=== PATIENT | female | born 1975 | race Caucasian/White ===

== ENCOUNTER 2018-08-29 15:07 | Inpatient (IN) ==
[2018-08-29] MEDS ORDERED: Ondansetron ODT 4 MG TAB.RAPDIS SL ONE (15:30)
[2018-08-29] MEDS ORDERED: Ketorolac 15 MG/ML VIAL IM ONE (15:30)
--- NOTE | 2018-08-29 15:59 | Emergency Department Note ---
Disposition Clinical Impression: Suicidal ideation, Left flank pain UTI (urinary tract infection) Qualifiers: Urinary tract infection type: acute cystitis Hematuria presence: without hematuria Qualified Code(s): N30.00 - Acute cystitis without hematuria Disposition: Still a Patient Referrals: NONE,PCP [Primary Care Provider] - Forms: ED Satisfaction Letter General Adult HPI - General Chief complaint: ED Psychiatric Symptoms Stated complaint: SI,Possible kidney stone Time Seen by Provider: 08/29/18 15:12 Source: patient, family Limitations: no limitations - History of Present Illness Pain Scale: 5 - Related Data Home Medications Medication Instructions Recorded Confirmed lamoTRIgine [Lamictal] 75 mg PO HS 05/07/15 05/07/15 Previous Rx's Medication Instructions Recorded Meloxicam [Mobic] 15 mg PO BID #15 tablet 05/22/15 metroNIDAZOLE [Flagyl] 500 mg PO BID #14 tablet 10/20/15 Melatonin 3 mg PO HS PRN #30 tablet 10/30/15 hydrOXYzine pamoate [HydrOXYzine 25 mg PO TID PRN #90 capsule 10/30/15 Pamoate] Allergies Allergy/AdvReac Type Severity Reaction Status Date / Time adhesive Allergy Rash Verified 07/01/15 02:48 aspirin [ASA] Allergy See Verified 05/22/15 10:15 Comments Past Medical History - Past Medical History Medical history: Reports: kidney stones, other Surgical history: Reports: hysterectomy Psychiatric history: Reports: prior suicide attempt, previous psychiatric hospitalization 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 - Social History Smoking Status: Current every day smoker Smokeless Tobacco Status: No Alcohol use: Reports: occasionally, recent Drug use: Reports: none, other Physical Exam - General Limitations: no limitations General appearance: alert, in no apparent distress Course Vital Signs Temperature 98.1 F 08/29/18 15:09 Pulse Rate 97 08/29/18 15:09 Respiratory Rate 16 08/29/18 15:09 Blood Pressure 171/111 08/29/18 15:09 O2 Sat by Pulse Oximetry 97 08/29/18 15:09 Temperature 98.1 F 08/29/18 15:09 Pulse Rate 97 08/29/18 15:09 Respiratory Rate 16 08/29/18 15:09 Blood Pressure 171/111 08/29/18 15:09 O2 Sat by Pulse Oximetry 97 08/29/18 15:09 Oxygen Delivery Oxygen Delivery Room Air Medical Decision Making - Medical Records Medical records reviewed: Yes I reviewed the patient's medical records. - Lab Data Lab results reviewed: Yes I reviewed the patient's lab results. Result diagrams: 08/29/18 16:00 08/29/18 16:00 Lab Results 08/29/18 08/29/18 08/29/18 Range/Units 15:25 15:47 15:47 WBC (4.3-11.1) K/mcL RBC (3.82-4.97) M/mcL Hgb (11.5-15.4) g/dL Hct (35.3-44.9) % MCV (83.0-100.0) fL MCH (28.0-33.3) pg MCHC (31.6-35.5) g/dL RDW (11.5-14.5) % Plt Count (140-400) K/mcL MPV (9.4-12.4) fL Immature Gran % (0-4) % Seg Neutrophils % % Lymphocytes % % Monocytes % % Eosinophils % % Basophils % % Neutrophils # (1.6-8.9) K/mcL Lymphocytes # (0.6-4.6) K/mcL Monocytes # (0.0-1.3) K/mcL Eosinophils # (0.0-0.6) K/mcL Basophils # (0.0-0.2) K/mcL Sodium (136-145) mEq/L Potassium (3.5-5.1) mEq/L Chloride (98-107) mEq/L Carbon Dioxide (23-29) mEq/L BUN (6-20) mg/dL Creatinine (0.60-1.20) mg/dL Est GFR ( Amer) (> 60) Est GFR (Non-Af Amer) (> 60) BUN/Creatinine Ratio (6-26) Glucose (70-105) mg/dL Calculated Osmolality (280-300) Calcium (8.6-10.3) mg/dL Urine Color Dark Yellow (Yellow) Urine Clarity Cloudy A (Clear) Urine pH 6.0 (5.0-8.0) pH Units Ur Specific [place] 1.025 (1.010-1.025) Urine Protein Trace (Neg-Trace) mg/dL Urine Glucose (UA) Normal (Normal) mg/dL Urine Ketones Trace H (Negative) mg/dL Urine Blood Moderate H (Negative) Urine Nitrite Positive A (Negative) Urine Bilirubin Negative (Negative) Urine Urobilinogen Normal (Normal) mg/dL Ur Leukocyte Esterase Small H (Negative) Urine Microscopic RBC 5-15 H (0-3) per hpf Urine Microscopic WBC 5-15 H (0-3) per hpf Ur Squamous Epith Cells Many H (None-Few) per lpf Urine Bacteria Many H (None-Few) per hpf Hyaline Casts None Seen (None-Few) per lpf Urine Test Negative (Negative) Salicylates (15.0-30.0) mg/dL Urine Opiates Screen Positive H (Ekgtvj=546) ng/mL Acetaminophen (10-20) mcg/mL Ur Barbiturates Screen Negative (Raynnr=033) ng/mL Ur Phencyclidine Scrn Negative (Cutoff=25) ng/mL Ur Amphetamines Screen Negative (Bvklov=0571) ng/mL U Benzodiazepines Scrn Negative (Ymgidy=072) ng/mL Urine Cocaine Screen Negative (Cutoff= 300) ng/mL U Marijuana (THC) Screen Positive H (Cutoff = 50) ng/mL Ur Drug Screen Interp See Below Ethyl Alcohol (Less than 10) mg/dL 08/29/18 08/29/18 Range/Units 16:00 16:00 WBC 9.8 (4.3-11.1) K/mcL RBC 4.73 (3.82-4.97) M/mcL Hgb 16.0 H (11.5-15.4) g/dL Hct 47.5 H (35.3-44.9) % MCV 100.4 H (83.0-100.0) fL MCH 33.8 H (28.0-33.3) pg MCHC 33.7 (31.6-35.5) g/dL RDW 13.5 (11.5-14.5) % Plt Count 279 (140-400) K/mcL MPV 10.4 (9.4-12.4) fL Immature Gran % 0.3 (0-4) % Seg Neutrophils % 72.4 % Lymphocytes % 20.7 % Monocytes % 5.8 % Eosinophils % 0.2 % Basophils % 0.6 % Neutrophils # 7.1 (1.6-8.9) K/mcL Lymphocytes # 2.0 (0.6-4.6) K/mcL Monocytes # 0.6 (0.0-1.3) K/mcL Eosinophils # 0.0 (0.0-0.6) K/mcL Basophils # 0.1 (0.0-0.2) K/mcL Sodium 140 (136-145) mEq/L Potassium 3.7 (3.5-5.1) mEq/L Chloride 108 H (98-107) mEq/L Carbon Dioxide 23 (23-29) mEq/L BUN 11 (6-20) mg/dL Creatinine 0.67 (0.60-1.20) mg/dL Est GFR ( Amer) > 60 (> 60) Est GFR (Non-Af Amer) > 60 (> 60) BUN/Creatinine Ratio 16 (6-26) Glucose 129 H (70-105) mg/dL Calculated Osmolality 291 (280-300) Calcium 9.2 (8.6-10.3) mg/dL Urine Color (Yellow) Urine Clarity (Clear) Urine pH (5.0-8.0) pH Units Ur Specific [place] (1.010-1.025) Urine Protein (Neg-Trace) mg/dL Urine Glucose (UA) (Normal) mg/dL Urine Ketones (Negative) mg/dL Urine Blood (Negative) Urine Nitrite (Negative) Urine Bilirubin (Negative) Urine Urobilinogen (Normal) mg/dL Ur Leukocyte Esterase (Negative) Urine Microscopic RBC (0-3) per hpf Urine Microscopic WBC (0-3) per hpf Ur Squamous Epith Cells (None-Few) per lpf Urine Bacteria (None-Few) per hpf Hyaline Casts (None-Few) per lpf Urine Test (Negative) Salicylates < 2.5 L (15.0-30.0) mg/dL Urine Opiates Screen (Wehgwz=744) ng/mL Acetaminophen < 10 L (10-20) mcg/mL Ur Barbiturates Screen (Qnjvmn=255) ng/mL Ur Phencyclidine Scrn (Cutoff=25) ng/mL Ur Amphetamines Screen (Gjjtxs=7956) ng/mL U Benzodiazepines Scrn (Nhegmy=389) ng/mL Urine Cocaine Screen (Cutoff= 300) ng/mL U Marijuana (THC) Screen (Cutoff = 50) ng/mL Ur Drug Screen Interp Ethyl Alcohol < 10 (Less than 10) mg/dL - Radiology Data Radiology results reviewed: Yes I reviewed the patient's radiology results. Attestation Statement - Attestation Attestation: I examined this patient and my medical decision-making was reviewed with the Resident Physician. I agree with the documented findings, disposition and treatment plan as described except to the extent set forth below. 42-year-old female presented to the emergency room for a psychiatric evaluation. Patient has a history of bipolar disorder. Patient has not been taking her medications. She admits to suicidal thoughts. Previous suicidal attempts in the past. Patient will be worked up with medical clearance. She denies homicidal thoughts. She does not have a current plan but states that she will does want to kill herself. She is also complaining of left flank pain as well as right-sided lower abdominal pain. She has a history of kidney stones. She thought she might be having another kidney stone as well. We will check labs, urinalysis, CT abdomen and pelvis.
--- NOTE | 2018-08-29 16:01 | Emergency Department Note ---
Disposition Clinical Impression: Suicidal ideation, Left flank pain, UTI (urinary tract infection) Disposition: Still a Patient Referrals: NONE,PCP [Primary Care Provider] - Forms: ED Satisfaction Letter Psych HPI - General Chief Complaint: ED Psychiatric Symptoms Stated Complaint: SI,Possible kidney stone Time Seen by Provider: 08/29/18 15:12 Source: patient, family Nursing Notes Reviewed: Yes Vital Signs Reviewed: Yes - History of Present Illness HPI Narrative: 42-year-old female presents from home with friends bedside. She is in agreement to talk about all of her current and previous medical history in front of him. She seeks evaluation for left flank pain which she believes is a kidney stone as well as suicidal ideation. Left flank pain: For the past 4 days, patient has had intermittent waxing and waning sharp stabbing left-sided flank pain with associated urinary burning, frequency, dysuria. Identical to her prior kidney stones which she has had previously. She does have associated nausea. No vomiting. No fevers or chills. No trauma. No gross hematuria. She is agreeable to CT abdomen pelvis without contrast in supportive management at this time. Suicidal ideation: Patient is a history of bipolar disorder. Since February, she has been noncompliant with her medications and drinking a bottle of wild [place] liquor each day. Last drink was last night. She currently does not have any nausea or jittery feelings. She is getting to the point where she does not want to leave her room, she does not want to live. She states, "I have been down this path before and I know where he is having. I do not want to go there and one help." She denies illicit substances with the exception of marijuana which she may have smoked while intoxicated with alcohol. She is not sure. She notes that, in February a close friend unexpectedly . Similar circumstances happened in March. She does have a history of suicidal attempt with intentional medication overdose many years ago. She does not currently have a plan. She has not intentionally ingested anything to harm herself recently. Current every day tobacco smoker. ROS: Positive: As above Negative: Fever, chills, vomiting, diarrhea, constipation, vaginal discharge, chest pains, palpitations - Related Data Home Medications Medication Instructions Recorded Confirmed lamoTRIgine [Lamictal] 75 mg PO HS 05/07/15 05/07/15 Previous Rx's Medication Instructions Recorded Meloxicam [Mobic] 15 mg PO BID #15 tablet 05/22/15 metroNIDAZOLE [Flagyl] 500 mg PO BID #14 tablet 10/20/15 Melatonin 3 mg PO HS PRN #30 tablet 10/30/15 hydrOXYzine pamoate [HydrOXYzine 25 mg PO TID PRN #90 capsule 10/30/15 Pamoate] Allergies Allergy/AdvReac Type Severity Reaction Status Date / Time adhesive Allergy Rash Verified 07/01/15 02:48 aspirin [ASA] Allergy See Verified 05/22/15 10:15 Comments All systems ED: reviewed and negative except as stated. 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 Head: atraumatic, normocephalic Eye: normal appearance, PERRL, EOMI, no scleral icterus, no conjunctival injection ENT: mucous membranes moist, normal external ear exam Neck: normal inspection, trachea midline, full ROM Chest: normal inspection, symmetric chest rise Respiratory: Good respiratory effort. Bilateral breath sounds are clear without wheezing, crackles, or rhonchi. Cardiovascular: Regular rate and rhythm. No clicks, rubs, gallops, or murmors. Normal heart sounds. Abdomen: Bowel sounds present normoactive. Abdomen is soft, nondistended, and nontender. No guarding or rebound. No CVA tenderness. Musculoskeletal: Spontaneously moving all extremities. Skin: warm, dry, intact. Neuro: GCS 15. Alert and oriented x4. Psych: Patient's affect is appropriate for situation. - General Limitations: no limitations General appearance: alert, in no apparent distress Course Course Narrative: Discussed the patient anticipated course of treatment both for her left leg pain as well as for our mutual concerns of her mental health. She is in agreement with this plan of care. Will provide Zofran and Toradol for her nausea and flank pain. CT of the pelvis without contrast. Will attempt medical clearance for mental health evaluation which will include urinalysis. CT abdomen pelvis shows no acute abnormalities. Specifically, no calculus in the kidney or ureter. Blood work shows UTI otherwise is unremarkable. Patient is stable with no concerns of sepsis. Will treat with oral nitrofurantoin. First dose provided in the emergency department. At this time, patient is medically cleared however we need to have oral antibiotic continued for her UTI. Abdomen/Pelvis CT 08/29/18 15:30 IMPRESSION: Nonobstructive left nephrolithiasis. No right nephrolithiasis, stone seen along the ureters or within the urinary bladder. Cholelithiasis without evidence of cholecystitis. Diverticulosis without evidence of diverticulitis. Normal appendix. D/ / Qasim Murguia / Qasim Murguia Interpreting Provider: Qasim Murguia Vital Signs Temperature 98.1 F 08/29/18 15:09 Pulse Rate 97 08/29/18 15:09 Respiratory Rate 16 08/29/18 15:09 Blood Pressure 171/111 08/29/18 15:09 O2 Sat by Pulse Oximetry 97 08/29/18 15:09 Temperature 98.1 F 08/29/18 15:09 Pulse Rate 97 08/29/18 15:09 Respiratory Rate 16 08/29/18 15:09 Blood Pressure 171/111 08/29/18 15:09 O2 Sat by Pulse Oximetry 97 08/29/18 15:09 Oxygen Delivery Oxygen Delivery Room Air Psych - Lab Data Result diagrams: 08/29/18 16:00 08/29/18 16:00 Lab Results 08/29/18 08/29/18 08/29/18 Range/Units 15:25 15:47 15:47 WBC (4.3-11.1) K/mcL RBC (3.82-4.97) M/mcL Hgb (11.5-15.4) g/dL Hct (35.3-44.9) % MCV (83.0-100.0) fL MCH (28.0-33.3) pg MCHC (31.6-35.5) g/dL RDW (11.5-14.5) % Plt Count (140-400) K/mcL MPV (9.4-12.4) fL Immature Gran % (0-4) % Seg Neutrophils % % Lymphocytes % % Monocytes % % Eosinophils % % Basophils % % Neutrophils # (1.6-8.9) K/mcL Lymphocytes # (0.6-4.6) K/mcL Monocytes # (0.0-1.3) K/mcL Eosinophils # (0.0-0.6) K/mcL Basophils # (0.0-0.2) K/mcL Sodium (136-145) mEq/L Potassium (3.5-5.1) mEq/L Chloride (98-107) mEq/L Carbon Dioxide (23-29) mEq/L BUN (6-20) mg/dL Creatinine (0.60-1.20) mg/dL Est GFR ( Amer) (> 60) Est GFR (Non-Af Amer) (> 60) BUN/Creatinine Ratio (6-26) Glucose (70-105) mg/dL Calculated Osmolality (280-300) Calcium (8.6-10.3) mg/dL Urine Color Dark Yellow (Yellow) Urine Clarity Cloudy A (Clear) Urine pH 6.0 (5.0-8.0) pH Units Ur Specific [place] 1.025 (1.010-1.025) Urine Protein Trace (Neg-Trace) mg/dL Urine Glucose (UA) Normal (Normal) mg/dL Urine Ketones Trace H (Negative) mg/dL Urine Blood Moderate H (Negative) Urine Nitrite Positive A (Negative) Urine Bilirubin Negative (Negative) Urine Urobilinogen Normal (Normal) mg/dL Ur Leukocyte Esterase Small H (Negative) Urine Microscopic RBC 5-15 H (0-3) per hpf Urine Microscopic WBC 5-15 H (0-3) per hpf Ur Squamous Epith Cells Many H (None-Few) per lpf Urine Bacteria Many H (None-Few) per hpf Hyaline Casts None Seen (None-Few) per lpf Urine Test Negative (Negative) Salicylates (15.0-30.0) mg/dL Urine Opiates Screen Positive H (Vihlqz=083) ng/mL Acetaminophen (10-20) mcg/mL Ur Barbiturates Screen Negative (Vssiwk=437) ng/mL Ur Phencyclidine Scrn Negative (Cutoff=25) ng/mL Ur Amphetamines Screen Negative (Vjkpnw=8561) ng/mL U Benzodiazepines Scrn Negative (Sjeyfe=168) ng/mL Urine Cocaine Screen Negative (Cutoff= 300) ng/mL U Marijuana (THC) Screen Positive H (Cutoff = 50) ng/mL Ur Drug Screen Interp See Below Ethyl Alcohol (Less than 10) mg/dL 08/29/18 08/29/18 Range/Units 16:00 16:00 WBC 9.8 (4.3-11.1) K/mcL RBC 4.73 (3.82-4.97) M/mcL Hgb 16.0 H (11.5-15.4) g/dL Hct 47.5 H (35.3-44.9) % MCV 100.4 H (83.0-100.0) fL MCH 33.8 H (28.0-33.3) pg MCHC 33.7 (31.6-35.5) g/dL RDW 13.5 (11.5-14.5) % Plt Count 279 (140-400) K/mcL MPV 10.4 (9.4-12.4) fL Immature Gran % 0.3 (0-4) % Seg Neutrophils % 72.4 % Lymphocytes % 20.7 % Monocytes % 5.8 % Eosinophils % 0.2 % Basophils % 0.6 % Neutrophils # 7.1 (1.6-8.9) K/mcL Lymphocytes # 2.0 (0.6-4.6) K/mcL Monocytes # 0.6 (0.0-1.3) K/mcL Eosinophils # 0.0 (0.0-0.6) K/mcL Basophils # 0.1 (0.0-0.2) K/mcL Sodium 140 (136-145) mEq/L Potassium 3.7 (3.5-5.1) mEq/L Chloride 108 H (98-107) mEq/L Carbon Dioxide 23 (23-29) mEq/L BUN 11 (6-20) mg/dL Creatinine 0.67 (0.60-1.20) mg/dL Est GFR ( Amer) > 60 (> 60) Est GFR (Non-Af Amer) > 60 (> 60) BUN/Creatinine Ratio 16 (6-26) Glucose 129 H (70-105) mg/dL Calculated Osmolality 291 (280-300) Calcium 9.2 (8.6-10.3) mg/dL Urine Color (Yellow) Urine Clarity (Clear) Urine pH (5.0-8.0) pH Units Ur Specific [place] (1.010-1.025) Urine Protein (Neg-Trace) mg/dL Urine Glucose (UA) (Normal) mg/dL Urine Ketones (Negative) mg/dL Urine Blood (Negative) Urine Nitrite (Negative) Urine Bilirubin (Negative) Urine Urobilinogen (Normal) mg/dL Ur Leukocyte Esterase (Negative) Urine Microscopic RBC (0-3) per hpf Urine Microscopic WBC (0-3) per hpf Ur Squamous Epith Cells (None-Few) per lpf Urine Bacteria (None-Few) per hpf Hyaline Casts (None-Few) per lpf Urine Test (Negative) Salicylates < 2.5 L (15.0-30.0) mg/dL Urine Opiates Screen (Zvwxua=164) ng/mL Acetaminophen < 10 L (10-20) mcg/mL Ur Barbiturates Screen (Bqpaao=416) ng/mL Ur Phencyclidine Scrn (Cutoff=25) ng/mL Ur Amphetamines Screen (Ozlxbv=2208) ng/mL U Benzodiazepines Scrn (Kvswmr=442) ng/mL Urine Cocaine Screen (Cutoff= 300) ng/mL U Marijuana (THC) Screen (Cutoff = 50) ng/mL Ur Drug Screen Interp Ethyl Alcohol < 10 (Less than 10) mg/dL Psychiatric Medical Clearance - Medical Clearance Checklist Medical History: No Social History Section defined Current Vitals: Last Vital Signs Temp 98.1 F 08/29/18 15:09 Pulse 97 08/29/18 15:09 Resp 16 08/29/18 15:09 BP 171/111 08/29/18 15:09 Pulse Ox 97 08/29/18 15:09 Psychiatric Lab Panel: Drug Levels and Toxicity 08/29/18 08/29/18 15:47 16:00 Urine Opiates Screen Positive H Acetaminophen < 10 L Ur Barbiturates Screen Negative Ur Phencyclidine Scrn Negative Ur Amphetamines Screen Negative U Benzodiazepines Scrn Negative Urine Cocaine Screen Negative U Marijuana (THC) Screen Positive H Ethyl Alcohol < 10 Abnormal Labs: Abnormal lab results Hgb 16.0 g/dL (11.5-15.4) H 08/29/18 16:00 Hct 47.5 % (35.3-44.9) H 08/29/18 16:00 MCV 100.4 fL (83.0-100.0) H 08/29/18 16:00 MCH 33.8 pg (28.0-33.3) H 08/29/18 16:00 Chloride 108 mEq/L (98-107) H 08/29/18 16:00 Glucose 129 mg/dL (70-105) H 08/29/18 16:00 Urine Clarity Cloudy (Clear) A 08/29/18 15:25 Urine Ketones Trace mg/dL (Negative) H 08/29/18 15:25 Urine Blood Moderate (Negative) H 08/29/18 15:25 Urine Nitrite Positive (Negative) A 08/29/18 15:25 Ur Leukocyte Esterase Small (Negative) H 08/29/18 15:25 Urine Microscopic RBC 5-15 per hpf (0-3) H 08/29/18 15:25 Urine Microscopic WBC 5-15 per hpf (0-3) H 08/29/18 15:25 Ur Squamous Epith Cells Many per lpf (None-Few) H 08/29/18 15:25 Urine Bacteria Many per hpf (None-Few) H 08/29/18 15:25 Salicylates < 2.5 mg/dL (15.0-30.0) L 08/29/18 16:00 Urine Opiates Screen Positive ng/mL (Faktlm=749) H 08/29/18 15:47 Acetaminophen < 10 mcg/mL (10-20) L 08/29/18 16:00 U Marijuana (THC) Screen Positive ng/mL (Cutoff = 50) H 08/29/18 15:47 Statement of Medical Clearance: I have evaluated the patient, reviewed diagnostic information, and certify that the patient's medical condition is sufficiently stable that transfer to the psychiatric unit does not pose a significant risk of deterioration.
[2018-08-29 16:16] LABS: Basophils # 0.1 K/mcL (0.0-0.2); Basophils % 0.6 %; Eosinophils % 0.2 %; Hematocrit 47.5 % (35.3-44.9); Immature Granulocytes % 0.3 % (0-4); Lymphocytes % 20.7 %; Mean Corpuscular HGB Conc 33.7 g/dL (31.6-35.5); Mean Corpuscular Hemoglobin 33.8 pg (28.0-33.3); Mean Corpuscular Volume 100.4 fL (83.0-100.0); Mean Platelet Volume 10.4 fL (9.4-12.4); Monocytes # 0.6 K/mcL (0.0-1.3); Monocytes % 5.8 %; Neutrophils # 7.1 K/mcL (1.6-8.9); Platelet Count 279 K/mcL (140-400); Red Blood Count 4.73 M/mcL (3.82-4.97); Red Cell Distribution Width 13.5 % (11.5-14.5); Segmented Neutrophils % 72.4 %
[2018-08-29 16:30] LABS: Bilirubin,Urine Negative (Negative); Blood,Urine Moderate (Negative); Clarity,Urine Cloudy (Clear); Color,Urine Dark Yellow (Yellow); Glucose,Urine (UA) Normal (Normal); Ketones,Urine Trace mg/dL (Negative); Leukocyte Esterase,Urine Small (Negative); Nitrite,Urine Positive (Negative); Protein,Urine Trace mg/dL (Neg-Trace); Specific Gravity,Urine 1.025 (1.010-1.025); Urobilinogen,Urine Normal (Normal)
[2018-08-29 16:34] LABS: Bacteria,Urine Many per hpf (None-Few); Hyaline Casts,Urine None Seen per lpf (None-Few); Squamous Epithelial Cell,Urine Many per lpf (None-Few)
[2018-08-29 16:54] LABS: Acetaminophen < 10 mcg/mL (10-20); BUN/Creatinine Ratio 16 (6-26); Blood Urea Nitrogen 11 mg/dL (6-20); Calcium 9.2 mg/dL (8.6-10.3); Carbon Dioxide 23 mEq/L (23-29); Chloride 108 mEq/L (98-107); Ethanol < 10 mg/dL (Less than 10); Glucose 129 mg/dL (70-105); Osmolality,Calculated 291 (280-300); Potassium 3.7 mEq/L (3.5-5.1); Salicylate < 2.5 mg/dL (15.0-30.0); Sodium 140 mEq/L (136-145); eGFR For Non-African Americans > 60 (> 60)
[2018-08-29 17:14] LABS: Amphetamine Screen,Urine Negative ng/mL (Cutoff=1000); Barbiturate Screen,Urine Negative ng/mL (Cutoff=200); Benzodiazepines Screen,Urine Negative ng/mL (Cutoff=200); Cannabinoid Screen,Urine Positive ng/mL (Cutoff = 50); Cocaine Screen,Urine Negative ng/mL (Cutoff= 300); Opiate Screen,Urine Positive ng/mL (Cutoff=300); Phencyclidine Screen,Urine Negative ng/mL (Cutoff=25)
[2018-08-29] MEDS ORDERED: Nitrofurantoin (BID) 100 MG CAPSULE PO STA (17:20)
[2018-08-29] MEDS ORDERED: Mag Hydrox/Al Hydrox/Simeth 30 ML UDC PO PRN (18:22)
[2018-08-29] MEDS ORDERED: Nicotine 2 MG GUM BC PRN (18:22)
[2018-08-29] MEDS ORDERED: Ibuprofen 400 MG TABLET PO PRN (18:22)
[2018-08-29] MEDS ORDERED: hydrOXYzine pamoate 25 MG CAPSULE PO PRN (18:22)
[2018-08-29] MEDS ORDERED: traZODone 50 MG TABLET PO PRN (18:22)
[2018-08-29] MEDS ORDERED: *HR* LORazepam 2 MG/ML VIAL IM PRN (18:22)
[2018-08-29] MEDS ORDERED: MOM Conc 10 ML UD.LIQ PO PRN (18:22)
[2018-08-29] MEDS ORDERED: Haloperidol Lactate 5 MG/ML VIAL IM PRN (18:22)
[2018-08-29] MEDS ORDERED: *HR* LORazepam 1 MG TABLET PO PRN (18:22)
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
[2018-08-30] MEDS: Thiamine (B-1) 100 MG TABLET PO SCH (14:30)
[2018-08-30] MEDS: Folic Acid 1 MG TABLET PO SCH (14:31)
[2018-08-30] MEDS: Gabapentin 300 MG CAPSULE PO SCH ×2 (14:31→20:14)
[2018-08-30] MEDS: Ondansetron ODT 4 MG TAB.RAPDIS SL PRN ×2 (14:32→20:16)
[2018-08-30] MEDS: CarBAMazepine 100 MG TABLET PO SCH (20:18)
[2018-08-31] MEDS: Folic Acid 1 MG TABLET PO SCH (08:10)
[2018-08-31] MEDS: Thiamine (B-1) 100 MG TABLET PO SCH (08:10)
[2018-08-31] MEDS: CarBAMazepine 100 MG TABLET PO SCH ×2 (08:10→20:48)
[2018-08-31] MEDS: Gabapentin 300 MG CAPSULE PO SCH ×3 (08:11→20:49)
[2018-08-31] MEDS: Cyanocobalamin (B-12) 1,000 MCG TABLET PO SCH (08:11)
[2018-08-31 09:01] LABS: Albumin 3.7 g/dL (3.5-5.7); Albumin/Globulin Ratio 1.7 (1.1-2.2); Bilirubin,Direct 0.1 mg/dL (0.0-0.2); Bilirubin,Indirect 0.2 mg/dL (0.0-1.2); Bilirubin,Total 0.3 mg/dL (0.3-1.0); Globulin 2.2 g/dL (2.4-3.5); Total Protein 5.9 g/dL (6.4-8.9)
[2018-08-31 09:13] LABS: Thyroid Stimulating Hormone 1.77 mcIU/mL (0.340-5.600)
--- NOTE | 2018-08-31 12:02 | Psychiatry Progress Note ---
Date of Encounter: 08/31/18 Time of Encounter: 12:00 Subjective Interval history: ID the patient is a 42-year-old white female Chief complaint: I am worried about hepatitis they said I might have some risk factors. I am feeling woozy not sure what that is. History of present illness. The patient is tolerated gabapentin but has some sedation from it. At home she would take 600 mg for knee pain and then go to sleep. The patient notes that she is feeling a little bit unsteady. She did start carbamazepine and had 1 or 2 doses. Patient has avoided benzodiazepines and other sedatives personal because she sensitive second because family members and friends of had problems with addiction. Patient was placed back on Flagyl for a vaginal infection. Today liver function studies were drawn and were essentially normal with the exception of a low albumin and total protein.. Previously she was told that she had stage III kidney disease although normal creatinine was found at the time of admission the patient is interested in getting back on vivid trauma and notes that she previously got it in [facility] through [place]. Patient was told that she will need to start naltrexone on an outpatient basis. The patient is tolerating carbamazepine. But she has been worried about he patitis A hepatitis B and hepatitis C said because her sexual partner did have hepatits B and C. She reports that she is bisexual. She reports that she has had fluid, contact. Review of Systems Psychiatric: Reports: depression, abnormal sleep pattern, suicidal ideation, hopelessness, irritability Results - Vital Signs Vital Signs: Temp Pulse Resp BP Pulse Ox 98.5 F 80 16 116/75 98 08/31/18 07:49 08/31/18 07:49 08/31/18 07:49 08/31/18 07:49 08/31/18 07:49 - Labs Labs: Laboratory Results - last 24 hr 08/31/18 07:30 Total Bilirubin 0.3 Direct Bilirubin 0.1 Indirect Bilirubin 0.2 AST 13 ALT 16 Alkaline Phosphatase 63 Serum Total Protein 5.9 L Albumin 3.7 Globulin 2.2 L Albumin/Globulin Ratio 1.7 TSH 1.770 Free T4 0.82 - Impressions ITS Impressions Abdomen/Pelvis CT 08/29/18 15:30 IMPRESSION: Nonobstructive left nephrolithiasis. No right nephrolithiasis, stone seen along the ureters or within the urinary bladder. Cholelithiasis without evidence of cholecystitis. Diverticulosis without evidence of diverticulitis. Normal appendix. D/ / Qasim Murguia / Qasim Murguia Interpreting Provider: Qasim Murguia Assessment and Plan (1) Bipolar disorder, current episode depressed, severe, without psychotic features Current visit: Yes Status: Acute Plan: Continue hospitalization, Close observation, Suicide Precautions per unit protocol, Encourage participation in unit milieu, Group Therapy, Monitor sleep, Monitor appetite, Secure weapons Risks, benefits, side effects, alternatives discussed w/pt: Yes Patient agreeable to treatment: Yes (2) Alcohol dependence with uncomplicated withdrawal Current visit: Yes Status: Acute Plan: Suicide Precautions per unit protocol, Encourage participation in unit milieu, Monitor appetite Risks, benefits, side effects, alternatives discussed w/pt: Yes Patient agreeable to treatment: Yes (3) Cigarette nicotine dependence, uncomplicated Current visit: Yes Status: Acute Plan: Continue hospitalization, Close observation, Suicide Precautions per unit protocol, Encourage participation in unit milieu, Group Therapy, Monitor sleep, Monitor appetite Risks, benefits, side effects, alternatives discussed w/pt: Yes Patient agreeable to treatment: Yes (4) Suicidal ideation Current visit: Yes Status: Acute Plan: Suicide Precautions per unit protocol, Group Therapy Risks, benefits, side effects, alternatives discussed w/pt: Yes Patient agreeable to treatment: Yes Consult Discharge Plan - Plan Referrals: NONE,PCP [Primary Care Provider] - Psychiatry Exam - Constitutional Vitals: Temp Pulse Resp BP Pulse Ox 98.5 F 80 16 116/75 98 08/31/18 07:49 08/31/18 07:49 08/31/18 07:49 08/31/18 07:49 08/31/18 07:49 General appearance: age & developmentally appropriate, well-groomed, well- nourished - Musculoskeletal Gait: normal Station: relaxed Strength & Tone: normal for patient - Psychiatric Patient Orientation: Yes Person, Yes Time, Yes Place Level of alertness: Alert Behavior: calm, cooperative Psychomotor activity: Normal Eye Contact: Maintains Eye Contact Mood Description: Depressed Affect description: congruent with mood, full range Speech Volume: Normal Speech pattern: normal rate, normal rhythm, normal tone, fluent, spontaneous Language & Vocabulary: consistent with education Thought Process: Linear, Goal Oriented Thought Content: Yes Suicidal ideation, No Homicidal ideation, No Overt delusions Perceptual Disturbances: No Auditory hallucinations, No Visual hallucinations Attention Span Ability: Capable of Focused Attention Memory Description: Grossly Intact Patient Reliability: Reliable Historian Fund of knowledge: Yes abstraction ability, Yes average Intelligence Estimate: Average Judgment: Fair Insight: Partial
[2018-08-31] MEDS: metroNIDAZOLE 500 MG TABLET PO SCH ×2 (16:01→20:48)
[2018-09-01 08:20] VITALS: BP 125/66
[2018-09-01] MEDS: Thiamine (B-1) 100 MG TABLET PO SCH (08:58)
[2018-09-01] MEDS: Folic Acid 1 MG TABLET PO SCH (08:58)
[2018-09-01] MEDS: CarBAMazepine 100 MG TABLET PO SCH (08:58)
[2018-09-01] MEDS: Gabapentin 300 MG CAPSULE PO SCH ×2 (08:58→15:14)
[2018-09-01] MEDS: metroNIDAZOLE 500 MG TABLET PO SCH (08:59)
[2018-09-01] MEDS: Cyanocobalamin (B-12) 1,000 MCG TABLET PO SCH (08:59)
--- NOTE | 2018-09-01 12:36 | Discharge Summary ---
Date of Encounter: 09/01/18 Time of Encounter: 12:00 Diagnosis - Discharge Diagnosis (1) Bipolar disorder, current episode depressed, severe, without psychotic features Priority: Primary Status: Acute (2) Alcohol dependence with uncomplicated withdrawal Priority: Secondary Status: Resolved (3) Cigarette nicotine dependence, uncomplicated Status: Chronic (4) Suicidal ideation Status: Resolved Medications - Discharge Medications Prescriptions: carBAMazepine [CarBAMazepine] 100 mg PO BID 30 Days #60 tab Cyanocobalamin (B-12) [Vitamin B12] 1,000 mcg PO DAILY 30 Days #30 tablet Folic Acid 1 mg PO DAILY 30 Days #30 tablet Gabapentin [Neurontin] 600 mg PO BID PRN 30 Days #30 tablet PRN Reason: Pain metroNIDAZOLE [Flagyl] 500 mg PO BID 7 Days #14 tablet Naproxen [Naprosyn] 500 mg PO BIDWM PRN 30 Days #30 tablet PRN Reason: Pain Thiamine (B-1) [Vitamin B-1] 100 mg PO DAILY 30 Days #30 tablet Cyanocobalamin (B-12) [Vitamin B12] 1,000 mcg PO DAILY 30 Days #30 tablet 09/01/18 [Rx] Folic Acid 1 mg PO DAILY 30 Days #30 tablet 09/01/18 [Rx] Gabapentin [Neurontin] 600 mg PO BID PRN 30 Days #30 tablet 09/01/18 [Rx] Naproxen [Naprosyn] 500 mg PO BIDWM PRN 30 Days #30 tablet 09/01/18 [Rx] Thiamine (B-1) [Vitamin B-1] 100 mg PO DAILY 30 Days #30 tablet 09/01/18 [Rx] carBAMazepine [CarBAMazepine] 100 mg PO BID 30 Days #60 tab 09/01/18 [Rx] metroNIDAZOLE [Flagyl] 500 mg PO BID 7 Days #14 tablet 09/01/18 [Rx] Allergy/AdvReac Type Severity Reaction Status Date / Time adhesive Allergy Rash Verified 07/01/15 02:48 aspirin [ASA] Allergy See Verified 05/22/15 10:15 Comments Results Procedures and tests throughout hospitalization: Completed Lab Orders Category Date Time Status Acetaminophen Stat Lab 08/29/18 16:00 Completed Basic Metabolic Panel Stat Lab 08/29/18 16:00 Completed Complete Blood Count [HEME] Stat Lab 08/29/18 16:00 Completed Drug Screen, Urine [UCHEM] Stat Lab 08/29/18 15:47 Completed Ethanol Stat Lab 08/29/18 16:00 Completed Hepatic Panel Routine Lab 08/31/18 07:30 Completed Test Result, Urine [URIN] Stat Lab 08/29/18 15:47 Completed Salicylate Stat Lab 08/29/18 16:00 Completed TSH [Thyroid Stimulating Hormone] Routine Lab 08/31/18 07:30 Completed Thyroxine (T4) Free Routine Lab 08/31/18 07:30 Completed Urinalysis reflex Microscopic [URIN] Stat Lab 08/29/18 15:25 Completed Completed Imaging Orders Category Date Time Status CT abd pelvis wo no iv no oral [CT] Stat Cat Scan 08/29/18 15:30 Completed Provider Date of admission: 08/30/18 18:36 Primary care physician: PCP NONE Discharging clinician: Garret Hare Psychiatry Exam - Constitutional Vitals: Temp Pulse Resp BP Pulse Ox 98.1 F 85 18 125/66 97 09/01/18 08:19 09/01/18 08:19 09/01/18 08:19 09/01/18 08:19 09/01/18 08:19 General appearance: age & developmentally appropriate, well-groomed, well- nourished - Musculoskeletal Gait: normal Station: relaxed Strength & Tone: normal for patient - Psychiatric Patient Orientation: Yes Person, Yes Time, Yes Place Level of alertness: Alert Behavior: calm, cooperative Psychomotor activity: Normal Eye Contact: Maintains Eye Contact Mood Description: Euthymic/stable Affect description: congruent with mood, full range Speech Volume: Normal Speech pattern: normal rate, normal rhythm, normal tone, fluent, spontaneous Language & Vocabulary: consistent with education Thought Process: Linear, Goal Oriented Thought Content: No Suicidal ideation, No Homicidal ideation, No Overt delusions Perceptual Disturbances: No Auditory hallucinations, No Visual hallucinations Attention Span Ability: Capable of Focused Attention Memory Description: Grossly Intact Patient Reliability: Reliable Historian Fund of knowledge: Yes abstraction ability, Yes aware of current events Intelligence Estimate: Average Judgment: Good Insight: Full Hospital Course Hospital course: Ms. Wong is a 42 year old female Chief complaint I do not feel suicidal anymore. I need to get back to my meetings area History of present illness the patient was admitted for suicidal ideation. This occurred after a period of 6 months or more with significant losses. These included the deaths of close personal friends. The patient is also struggling with addiction in her family. She also has opened up her home to other people trying to get off drugs and alcohol. The patient had suicidal ideation at the time of admission she been off her medicines for bipolar disorder it is important to note that she had a rather late onset alcohol dependence and this coincided with bipolar disorder. The onset of bipolar disorder was probably in her late 20s and alcohol and her 30s. The patient was restarted on carbamazepine in the past she had had bad side effects to carbamazepine for bipolar disorder reported that low doses were affective. The patient was started on carbamazepine 100 mg twice a day she was able to tolerate this without significant neurologic side effects. However the patient developed some alcohol withdrawal. This included nausea and headache. The patient was treated with gabapentin for the mild withdrawal she developed some sedation at home she takes gabapentin 600 mg at bedtime and this helps her go to sleep with osteoarthritis for knee. The patient reports sobriety of up to 1 year while she was on the medicine vivitrol. A long-acting injection of naltrexone. The patient was evaluated with laboratory studies including liver function studies which did not reveal significant elevations thyroid studies were within normal limits. The patient had macrocytosis vitamin B-12 folate and thiamine were given as part of the daily supplement. The patient was treated with Flagyl for bacterial vaginosis that was continued from an outside prescription. The patient's medicines were adjusted for tolerability. Patient verbalized understanding and a goal of abstinence from alcohol. She agreed that a reasonable goal would be to try and make 90 meetings in 90 days. She was told that she should get a sponsor in . She was given other resources to help with alcohol and substance abuse in the family setting. Patient will have arrangements made for long-acting paliperidone and for continuing on medicines for bipolar disorder. It is felt that the patient's alcohol dependence secondary to bipolar disorder with treatment of mood disorder alcohol dependence in the goal of sobriety may improve. The patient had THC in her urine and opiates in her urine but denied any significant use of opiates and any continuous use of THC. She was cautioned about side effects of naltrexone and she will start on nalptrexone on the day of discharge at home. Time spent discussing smoking cessation with patient: 3 to 10 minutes Does patient wish to continue nicotine replacement upon disc: No - Time Spent with Patient Total time spent providing and/or coordinating discharge services: Greater than 30 minutes Assessment and Plan - Patient/Caregiver Discharge Instructions Activity: resume usual activities as tolerated Diet: regular diet - Follow up Plan Follow up with: NONE,PCP [Primary Care Provider] - Functional capacity at discharge: independent ambulation Overall status at discharge: Stable Disposition: Home, Self-Care Quality - Multiple Antipsychotics Patient discharged on 2 or more antipsychotic medications: No Procedures - Procedures Procedures: Medication Management, Crisis Stabilization, Supportive Therapy, Group Therapy, Psychoeducational Therapy
[2018-09-01 15:25] LABS: Hepatitis A Antibody IgM Nonreactive (Nonreactive); Hepatitis B Core IgM Nonreactive (Nonreactive); Hepatitis B Surface Antigen Nonreactive (Nonreactive); Hepatitis C Virus Antibody Nonreactive (Nonreactive)
== END 2018-09-01 16:20 | disposition home or self-care (01) | DRG 885 ==
LOC: 1ANU 15:07 → EMEROOARM 15:07 → 1ANU 18:18
PROVIDERS: ADMIT Psychiatry & Neurology Forensic Psychiatry; ATTEND Psychiatry & Neurology Forensic Psychiatry

== ENCOUNTER 2021-05-11 11:23 | Inpatient (IN) ==
[2021-05-11] MEDS ORDERED: 0.9 % Sodium Chloride 1,000 ML IVC ONE (11:59)
[2021-05-11] MEDS ORDERED: Ondansetron 4 MG/2 ML VIAL IVP ONE ×2 (12:00→16:12)
[2021-05-11 12:04] LABS: Bacteria,Urine Few per hpf (None-Few); Bilirubin,Urine Negative (Negative); Blood,Urine Small (Negative); Clarity,Urine Turbid (Clear); Color,Urine Yellow (Yellow); Glucose,Urine (UA) Normal (Normal); Ketones,Urine Trace mg/dL (Negative); Leukocyte Esterase,Urine Negative (Negative); Mucus,Urine Few per lpf (None-Few); Nitrite,Urine Negative (Negative); Protein,Urine Trace mg/dL (Neg-Trace); Specific Gravity,Urine 1.025 (1.010-1.025); Squamous Epithelial Cell,Urine Moderate per hpf (None-Few); Urobilinogen,Urine Normal (Normal); WBC,Urine 0-3 per hpf (0-3)
[2021-05-11 12:21] LABS: Basophils # 0.1 K/mcL (0.0-0.2); Basophils % 0.5 %; Eosinophils # 0.1 K/mcL (0.0-0.6); Eosinophils % 1.1 %; Hematocrit 45.6 % (35.3-44.9); Hemoglobin 15.8 g/dL (11.5-15.4); Immature Granulocytes % 0.5 % (0-4); Lymphocytes % 15.7 %; Mean Corpuscular HGB Conc 34.6 g/dL (31.6-35.5); Mean Corpuscular Hemoglobin 33.1 pg (28.0-33.3); Mean Corpuscular Volume 95.6 fL (83.0-100.0); Mean Platelet Volume 10.2 fL (9.4-12.4); Monocytes # 0.9 K/mcL (0.0-1.3); Monocytes % 6.9 %; Neutrophils # 9.7 K/mcL (1.6-8.9); Platelet Count 260 K/mcL (140-400); Red Blood Count 4.77 M/mcL (3.82-4.97); Red Cell Distribution Width 14.7 % (11.5-14.5); Segmented Neutrophils % 75.3 %; White Blood Count 12.9 K/mcL (4.3-11.1)
[2021-05-11 12:50] LABS: Alanine Aminotransferase 75 Units/L (7-52); Albumin 4.3 g/dL (3.5-5.7); Albumin/Globulin Ratio 1.7 (1.1-2.2); Alkaline Phosphatase 112 Units/L (34-104); Amylase 30 Units/L (29-103); Aspartate Amino Transferase 51 Units/L (13-39); BUN/Creatinine Ratio 11 (6-26); Bilirubin,Direct 0.1 mg/dL (0.0-0.2); Bilirubin,Indirect 0.3 mg/dL (0.0-1.0); Bilirubin,Total 0.4 mg/dL (0.3-1.0); Blood Urea Nitrogen 8 mg/dL (6-20); Calcium 8.8 mg/dL (8.6-10.3); Carbon Dioxide 21 mEq/L (23-29); Chloride 105 mEq/L (98-107); Globulin 2.6 g/dL (2.4-3.5); Glucose 96 mg/dL (70-105); Lipase 36 Units/L (11-82); Osmolality,Calculated 286 (280-300); Potassium 3.6 mEq/L (3.5-5.1); Sodium 139 mEq/L (136-145); Total Protein 6.9 g/dL (6.4-8.9); Troponin I < 0.03 ng/mL (< 0.04); eGFR For African Americans > 60 (> 60); eGFR For Non-African Americans > 60 (> 60)
[2021-05-11] MEDS ORDERED: *HR* FentaNYL (PF) 100 MCG/2 ML VIAL IVP ONE (14:02)
[2021-05-11] MEDS ORDERED: Naloxone 0.4 MG/ML INJ IVP PRN (18:00)
[2021-05-11] MEDS ORDERED: *HR* LORazepam 2 MG/ML VIAL IVP PRN ×2 (18:03)
[2021-05-11] MEDS ORDERED: *HR* Promethazine 25 MG/ML VIAL IM PRN (18:03)
[2021-05-11 19:31] LABS: Chol/HDL Ratio 3.7 (0-4.9)
[2021-05-11] MEDS: Ringers Solution, Lactated 1,000 ML IVC SCH (20:53)
[2021-05-11] MEDS: *HR* LORazepam 2 MG/ML VIAL IVP PRN (20:54)
[2021-05-11] MEDS ORDERED: *HR* OxyCODONE Immed Rel 5 MG TABLET PO PRN (20:57)
[2021-05-12 05:28] LABS: Hematocrit 42.9 % (35.3-44.9); Hemoglobin 14.7 g/dL (11.5-15.4); Mean Corpuscular HGB Conc 34.3 g/dL (31.6-35.5); Mean Corpuscular Volume 96.2 fL (83.0-100.0); Mean Platelet Volume 10.3 fL (9.4-12.4); Platelet Count 232 K/mcL (140-400); Red Blood Count 4.46 M/mcL (3.82-4.97); Red Cell Distribution Width 14.6 % (11.5-14.5)
[2021-05-12 05:29] LABS: White Blood Count 5.4 K/mcL (4.3-11.1)
[2021-05-12 05:35] LABS: Prothrombin Time 11.1 Seconds (9.4-12.1)
[2021-05-12 05:38] LABS: Activated Partial Thrombo Time 27.9 Seconds (26.0-36.0)
[2021-05-12 05:51] LABS: Alanine Aminotransferase 66 Units/L (7-52); Albumin 3.7 g/dL (3.5-5.7); Albumin/Globulin Ratio 1.6 (1.1-2.2); Alkaline Phosphatase 101 Units/L (34-104); Aspartate Amino Transferase 45 Units/L (13-39); BUN/Creatinine Ratio 8 (6-26); Bilirubin,Direct 0.1 mg/dL (0.0-0.2); Bilirubin,Indirect 0.4 mg/dL (0.0-1.0); Bilirubin,Total 0.5 mg/dL (0.3-1.0); Blood Urea Nitrogen 6 mg/dL (6-20); Calcium 8.2 mg/dL (8.6-10.3); Carbon Dioxide 26 mEq/L (23-29); Chloride 106 mEq/L (98-107); Globulin 2.3 g/dL (2.4-3.5); Glucose 99 mg/dL (70-105); Magnesium 1.7 mg/dL (1.6-2.6); Osmolality,Calculated 288 (280-300); Phosphorous 3.1 mg/dL (2.7-4.5); Potassium 3.3 mEq/L (3.5-5.1); Sodium 140 mEq/L (136-145); eGFR For African Americans > 60 (> 60); eGFR For Non-African Americans > 60 (> 60)
[2021-05-12] MEDS ORDERED: Pantoprazole 40 MG VIAL IVP SCH ×2 (06:00→21:45)
[2021-05-12] MEDS: Ringers Solution, Lactated 1,000 ML IVC SCH ×2 (06:18→13:24)
[2021-05-12] MEDS: *HR* Heparin 5,000 UNIT/ML VIAL SQ SCH ×2 (06:20→16:31)
[2021-05-12] MEDS: Doxycycline 100 MG in 0.9 % Sodium Chloride Mini Bag 100 ML IVPB SCH ×2 (06:20→16:31)
[2021-05-12] MEDS: Ondansetron 4 MG/2 ML VIAL IVP PRN (10:15)
[2021-05-12] MEDS: *HR* LORazepam 2 MG/ML VIAL IVP PRN ×2 (10:34→16:54)
[2021-05-12] MEDS ORDERED: Famotidine 20 MG TABLET PO PRN (10:50)
[2021-05-12] MEDS ORDERED: Melatonin 3 MG TABLET PO PRN (10:50)
[2021-05-12] MEDS ORDERED: (Buprenorphine Hcl/Naloxone Hcl [Suboxone 8 Mg-2 Mg S SL SCH (11:15)
[2021-05-12 11:39] LABS: Adenovirus Not Detected (Not Detect); Bordetella Pertussis Not Detected (Not Detect); Chlamydophila pneumoniae Not Detected (Not Detect); Coronavirus 229E Not Detected (Not Detect); Coronavirus HKU1 Not Detected (Not Detect); Coronavirus NL63 Not Detected (Not Detect); Coronavirus OC43 Not Detected (Not Detect); Human Metapneumovirus Not Detected (Not Detect); Human Rhinovirus/Enterovirus Not Detected (Not Detect); Influenza A Subtype 2009 H1 Not Detected (Not Detect); Influenza B Not Detected (Not Detect); Mycoplasma pneumoniae Not Detected (Not Detect); Parainfluenza Virus 1 Not Detected (Not Detect); Parainfluenza Virus 2 Not Detected (Not Detect); Parainfluenza Virus 3 Not Detected (Not Detect); Parainfluenza Virus 4 Not Detected (Not Detect); Respiratory Syncytial Virus Not Detected (Not Detect); SARS-CoV-2 Not Detected (Not Detect)
[2021-05-12] MEDS ORDERED: MetroNIDAZOLE 500 MG/100 ML 500 MG/100 ML BAG IVPB SCH (12:00)
[2021-05-12] MEDS: carBAMazepine 200 MG TABLET PO SCH (12:10)
[2021-05-12] MEDS: MetroNIDAZOLE 500 MG/100 ML 500 MG/100 ML BAG IVPB SCH ×2 (13:23→21:01)
[2021-05-12] MEDS: Thiamine (B-1) 100 MG, Folic Acid 1 MG, MVI, adult with vitamin K 10 ML in 0.9 % Sodi... IVPB SCH (17:40)
[2021-05-12] MEDS ORDERED: *HR* Buprenorphine HCl 8 MG TAB.SUBL SL SCH (21:00)
[2021-05-12] MEDS: hydrOXYzine pamoate 25 MG CAPSULE PO PRN (22:16)
[2021-05-13 01:33] LABS: Hematocrit 39.7 % (35.3-44.9); Hemoglobin 13.5 g/dL (11.5-15.4); Mean Corpuscular Hemoglobin 33.5 pg (28.0-33.3); Mean Corpuscular Volume 98.5 fL (83.0-100.0); Mean Platelet Volume 10.5 fL (9.4-12.4); Platelet Count 208 K/mcL (140-400); Red Blood Count 4.03 M/mcL (3.82-4.97); Red Cell Distribution Width 14.6 % (11.5-14.5); White Blood Count 6.2 K/mcL (4.3-11.1)
[2021-05-13 01:50] LABS: Alanine Aminotransferase 61 Units/L (7-52); Albumin 3.3 g/dL (3.5-5.7); Albumin/Globulin Ratio 1.6 (1.1-2.2); Alkaline Phosphatase 86 Units/L (34-104); Aspartate Amino Transferase 38 Units/L (13-39); BUN/Creatinine Ratio 6 (6-26); Bilirubin,Total 0.3 mg/dL (0.3-1.0); Blood Urea Nitrogen 5 mg/dL (6-20); Calcium 8.4 mg/dL (8.6-10.3); Carbon Dioxide 24 mEq/L (23-29); Chloride 110 mEq/L (98-107); Globulin 2.1 g/dL (2.4-3.5); Glucose 114 mg/dL (70-105); Osmolality,Calculated 286 (280-300); Sodium 139 mEq/L (136-145); Total Protein 5.4 g/dL (6.4-8.9); eGFR For African Americans > 60 (> 60); eGFR For Non-African Americans > 60 (> 60)
[2021-05-13] MEDS: Ringers Solution, Lactated 1,000 ML IVC SCH (02:49)
[2021-05-13] MEDS: MetroNIDAZOLE 500 MG/100 ML 500 MG/100 ML BAG IVPB SCH (04:43)
[2021-05-13] MEDS: *HR* Heparin 5,000 UNIT/ML VIAL SQ SCH ×2 (04:43→17:05)
[2021-05-13] MEDS: Doxycycline 100 MG in 0.9 % Sodium Chloride Mini Bag 100 ML IVPB SCH (06:26)
[2021-05-13] MEDS ORDERED: metroNIDAZOLE 500 MG TABLET PO ONE (08:17)
[2021-05-13] MEDS ORDERED: Doxycycline 100 MG CAPSULE PO ONE (08:17)
[2021-05-13] MEDS: carBAMazepine 200 MG TABLET PO SCH (08:23)
[2021-05-13] MEDS: *HR* Buprenorphine HCl 8 MG TAB.SUBL SL SCH (08:23)
[2021-05-13] MEDS ORDERED: Pantoprazole 40 MG VIAL IVP SCH (09:00)
[2021-05-13 09:24] LABS: Hepatitis B Surface Antigen Nonreactive (Nonreactive)
[2021-05-13 09:53] LABS: Hepatitis B Core IgM Nonreactive (Nonreactive)
[2021-05-13 09:54] LABS: Hepatitis A Antibody IgM Nonreactive (Nonreactive); Hepatitis C Virus Antibody Nonreactive (Nonreactive)
[2021-05-13] MEDS: Ondansetron 4 MG/2 ML VIAL IVP PRN ×2 (13:38→21:21)
[2021-05-13] MEDS: Thiamine (B-1) 100 MG, Folic Acid 1 MG, MVI, adult with vitamin K 10 ML in 0.9 % Sodi... IVPB SCH (17:43)
[2021-05-13] MEDS ORDERED: Doxycycline 100 MG CAPSULE PO SCH (21:00)
[2021-05-13] MEDS: metroNIDAZOLE 500 MG TABLET PO SCH (21:13)
[2021-05-13] MEDS: Doxycycline 100 MG CAPSULE PO SCH (21:13)
[2021-05-13] MEDS: *HR* LORazepam 2 MG/ML VIAL IVP PRN (21:21)
[2021-05-14 02:11] LABS: Hematocrit 38.2 % (35.3-44.9); Hemoglobin 12.9 g/dL (11.5-15.4); Mean Corpuscular HGB Conc 33.8 g/dL (31.6-35.5); Mean Corpuscular Hemoglobin 33.5 pg (28.0-33.3); Mean Corpuscular Volume 99.2 fL (83.0-100.0); Mean Platelet Volume 10.7 fL (9.4-12.4); Platelet Count 211 K/mcL (140-400); Red Blood Count 3.85 M/mcL (3.82-4.97); Red Cell Distribution Width 14.6 % (11.5-14.5); White Blood Count 8.9 K/mcL (4.3-11.1)
[2021-05-14 02:34] LABS: BUN/Creatinine Ratio 13 (6-26); Blood Urea Nitrogen 10 mg/dL (6-20); Calcium 8.6 mg/dL (8.6-10.3); Carbon Dioxide 24 mEq/L (23-29); Chloride 105 mEq/L (98-107); Glucose 127 mg/dL (70-105); Osmolality,Calculated 285 (280-300); Sodium 137 mEq/L (136-145); eGFR For African Americans > 60 (> 60); eGFR For Non-African Americans > 60 (> 60)
[2021-05-14] MEDS: Ondansetron 4 MG/2 ML VIAL IVP PRN (05:27)
[2021-05-14] MEDS: *HR* Heparin 5,000 UNIT/ML VIAL SQ SCH (05:28)
[2021-05-14] MEDS: hydrOXYzine pamoate 25 MG CAPSULE PO PRN (05:33)
[2021-05-14] MEDS: metroNIDAZOLE 500 MG TABLET PO SCH (08:34)
[2021-05-14] MEDS: carBAMazepine 200 MG TABLET PO SCH (08:34)
[2021-05-14] MEDS: Doxycycline 100 MG CAPSULE PO SCH (08:34)
[2021-05-14] MEDS: *HR* Buprenorphine HCl 8 MG TAB.SUBL SL SCH (08:35)
[2021-05-14] MEDS ORDERED: Nicotine 2 MG GUM BC PRN (09:14)
[2021-05-14] MEDS ORDERED: Nicotine 21 MG PATCH.TD24 TD SCH (09:15)
[2021-05-14 10:33] VITALS: BP 143/94; PULSE 98; TEMP 97.8; O2SAT 93
[2021-05-15 06:49] LABS: Anaplasma phagocytophilum IgG <1:80 (<1:80); Anaplasma phagocytophilum IgM < 1:16 (< 1:16)
[2021-05-18] MEDS ORDERED: Ergocalciferol (VIT D2) 50,000 UNIT (1.25MG) CAP PO SCH (09:00)
== END 2021-05-14 13:37 | DRG 867 ==
LOC: EMEROOARM 11:23 → 3BNU 11:23 → SUATTDRO 16:48 → 3BNU 17:22 → SUATTDRO 05-12 15:18
PROVIDERS: ADMIT Internal Medicine; ATTEND Internal Medicine